=== PATIENT | female | born 2000 | race Caucasian/White ===

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

== ENCOUNTER → 2020-01-15 | Outpatient (CLI) | payer BC ==
[2020-01-15 12:56] LABS: BASO % 0.3 % (0.0-1.0); EOS % 0.4 % (0.0-3.0); HEMOGLOBIN 15.1 g/dl (12.0-15.5); LYMPH # 1.6 10^3/uL (1.5-5.0); LYMPH % 23.5 % (24.0-44.0); MEAN CORPUSCULAR HEMOGLOBIN 30.1 pg (27.0-33.0); MEAN CORPUSCULAR HGB CONC 33.6 g/dl (32.0-36.5); MEAN CORPUSCULAR VOLUME 89.8 fl (80.0-96.0); MONO # 0.4 10^3/uL (0.0-0.8); MONO % 5.9 % (0.0-5.0); NEUTROPHILS # 4.8 10^3/uL (1.5-8.5); NEUTROPHILS % 69.6 % (36.0-66.0); PLATELET COUNT, AUTOMATED 354 10^3/uL (150-450); RED BLOOD COUNT 5.01 10^6/uL (4.00-5.40); WHITE BLOOD COUNT 6.9 10^3/uL (4.0-10.0)
[2020-01-15 13:07] LABS: APPEARANCE, URINE CLEAR (CLEAR); BACTERIA, URINE AUTO NEGATIVE (NEGATIVE); BILIRUBIN, URINE AUTO NEGATIVE (NEGATIVE); BLOOD, URINE BLOOD NEGATIVE (NEGATIVE); COLOR, URINE YELLOW (YELLOW); GLUCOSE, URINE (UA) AUTO NEGATIVE (NEGATIVE); KETONE, URINE AUTO NEGATIVE (NEGATIVE); LEUKOCYTE ESTERASE, URINE AUTO NEGATIVE (NEGATIVE); MUCUS, URINE SMALL (NEGATIVE); NITRITE, URINE AUTO NEGATIVE (NEGATIVE); PROTEIN, URINE AUTO NEGATIVE (NEGATIVE); RBC, URINE AUTO 1 /HPF (0-3); SPECIFIC GRAVITY URINE AUTO 1.014 (1.002-1.035); SQUAMOUS EPITHELIAL CELL UR AU 0 /HPF (0-6); UROBILINOGEN, URINE AUTO 0.2 mg/dL (0.0-2.0); WBC, URINE AUTO 0 /HPF (0-3)
[2020-01-15 13:40] LABS: ALBUMIN 4.4 GM/DL (3.2-5.2); ALT/SGPT 22 U/L (12-78); BILIRUBIN,TOTAL 0.5 MG/DL (0.2-1.0); BLOOD UREA NITROGEN 11 MG/DL (7-18); CARBON DIOXIDE LEVEL 28 MEQ/L (21-32); CHLORIDE LEVEL 102 MEQ/L (98-107); CREATININE FOR GFR 0.82 MG/DL (0.55-1.30); GLOMERULAR FILTRATION RATE > 60.0 (>60); GLUCOSE, FASTING 88 MG/DL (70-100); SODIUM LEVEL 138 MEQ/L (136-145); TOTAL PROTEIN 8.5 GM/DL (6.4-8.2)
== END ==
LOC: M LAB 12:16
PROVIDERS: ATTEND Dermatology
DX: R35.1 Nocturia (principal)

== ENCOUNTER → 2020-03-31 | Outpatient (REF) | payer BC | LOC: M SFHCWAGY 19:39 | PROVIDERS: ATTEND Nurse Practitioner Women's Health | DX: Z12.4 Encounter for screening for malignant neoplasm of cervix (principal) ==

== ENCOUNTER → 2020-04-30 | Outpatient (REF) | LOC: M EMP 14:01 | PROVIDERS: ATTEND Family Medicine | DX: Z02.89 Encounter for other administrative examinations (principal) ==

== ENCOUNTER → 2021-03-26 | Outpatient (REF) | payer BC, OTHER | LOC: M LAB REF 19:12 | PROVIDERS: ATTEND Dermatology | DX: L92.9 Granulomatous disorder of the skin and subcutaneous tissue, unspecified (principal) ==

== ENCOUNTER → 2021-05-13 | Outpatient (REF) | payer OTHER ==
[2021-05-13 14:57] LABS: GC DNA AMPLIFICATION NEGATIVE (NEGATIVE)
== END ==
LOC: M SFHCWAGY 12:33
PROVIDERS: ATTEND Nurse Practitioner Women's Health
DX: Z11.3 Encounter for screening for infections with a predominantly sexual mode of transmission (principal)

== ENCOUNTER → 2021-06-22 | Outpatient (CLI) | payer OTHER ==
[2021-06-22 18:12] LABS: BASO % 0.2 % (0.0-1.0); EOS % 0.4 % (0.0-3.0); HEMOGLOBIN 14.9 g/dl (12.0-15.5); LYMPH # 1.7 10^3/uL (1.5-5.0); LYMPH % 18.7 % (24.0-44.0); MEAN CORPUSCULAR HGB CONC 33.9 g/dl (32.0-36.5); MEAN CORPUSCULAR VOLUME 91.7 fl (80.0-96.0); MONO # 0.7 10^3/uL (0.0-0.8); MONO % 7.5 % (2.0-8.0); NEUTROPHILS # 6.8 10^3/uL (1.5-8.5); PLATELET COUNT, AUTOMATED 304 10^3/uL (150-450); WHITE BLOOD COUNT 9.3 10^3/uL (4.0-10.0)
[2021-06-22 19:26] LABS: HEPATITIS C VIRUS ABY INDEX < 0.0 INDEX (<0.8); HIV 1&2 SCREEN CENTAUR NEGATIVE (NEGATIVE)
[2021-06-22 19:56] LABS: GC DNA AMPLIFICATION NEGATIVE (NEGATIVE)
== END ==
LOC: M PLALAB 14:24
PROVIDERS: ATTEND Specialist
DX: Z34.01 Encounter for supervision of normal first pregnancy, first trimester (principal)

== ENCOUNTER → 2021-09-10 | Outpatient (CLI) | payer MEDICAID, OTHER | LOC: M WHC 12:27 | PROVIDERS: ATTEND Specialist | DX: Z34.02 Encounter for supervision of normal first pregnancy, second trimester (principal) ==

== ENCOUNTER → 2021-11-23 | Outpatient (CLI) | payer OTHER | LOC: M PLALAB 09:47 | PROVIDERS: ATTEND Obstetrics & Gynecology | DX: Z34.03 Encounter for supervision of normal first pregnancy, third trimester (principal) ==

== ENCOUNTER → 2021-12-25 | Outpatient (REF) | payer OTHER, MEDICAID | LOC: M SFHCWAGY 13:14 | PROVIDERS: ATTEND Advanced Practice Midwife | DX: Z34.03 Encounter for supervision of normal first pregnancy, third trimester (principal) ==

== ENCOUNTER 2022-01-21 22:30 | Inpatient (IN) | payer OTHER, MEDICAID ==
[~2022-01-21] VITALS: Ht 165.1 cm; Wt 74.5 kg
[2022-01-21 22:55] VITALS: BP 140/96
[2022-01-21] MEDS ORDERED: PRENTAB9 PO (22:56)
[2022-01-21] MEDS ORDERED: PENICILLIN G POTASSIUM IV 5 MU in D5W MINI-BAG PLUS 100 ML IV STA (23:08)
[2022-01-21] MEDS ORDERED: LACTATED RINGER'S 1000 ML IV STA (23:08)
[2022-01-22] VITALS (42 sets, daily range): BP systolic 111–162; BP diastolic 59–106
[2022-01-22] MEDS ORDERED: FENTANYL 2MCG/ML ROPIVACAINE 0.2% IN 0.9% NACL 100ML IVBAG As Ordered ONE (00:07)
[2022-01-22 00:09] LABS: HEMATOCRIT 41.3 % (36.0-47.0); HEMOGLOBIN 14.3 g/dl (12.0-15.5); MEAN CORPUSCULAR HEMOGLOBIN 30.5 pg (27.0-33.0); MEAN CORPUSCULAR HGB CONC 34.6 g/dl (32.0-36.5); MEAN CORPUSCULAR VOLUME 88.1 fl (80.0-96.0); PLATELET COUNT, AUTOMATED 295 10^3/uL (150-450); RED BLOOD COUNT 4.69 10^6/uL (4.00-5.40); WHITE BLOOD COUNT 14.2 10^3/uL (4.0-10.0)
[2022-01-22] MEDS ORDERED: EPIDURAL/PCA KEYS XX PRN (00:39)
[2022-01-22] MEDS ORDERED: EPIDURAL COMMENT XX SCH (00:39)
[2022-01-22] MEDS ORDERED: NALOXONE INJ 0.4MG/1ML VIAL (J2310 PER 1MG) IV PRN (00:39)
[2022-01-22] MEDS ORDERED: REFRIGERATOR IV KEYS XX PRN (00:39)
[2022-01-22] MEDS ORDERED: diphenhydrAMINE 50MG/ML VIAL (J1200) IV PRN (00:39)
[2022-01-22] MEDS ORDERED: LACTATED RINGER'S 1000 ML IV PRN (00:39)
[2022-01-22] MEDS ORDERED: ePHEDrine SULFATE 25 MG/5 ML(5MG/ML) SYRINGE IV PRN (00:39)
[2022-01-22] MEDS ORDERED: ONDANSETRON 4MG/2ML VIAL IV PRN (00:39)
[2022-01-22] MEDS: LR 1,000 ML IV SCH ×3 (01:00→11:28)
[2022-01-22] MEDS: FENTANYL/ROPIVACAINE/NACL BAG 100 ML EPIDURAL SCH ×2 (01:58→07:21)
[2022-01-22] MEDS ORDERED: OXYTOCIN 30 UNITS IN 0.9% NaCl 500ML IV BAG (J2590) As Ordered ONE (02:37)
[2022-01-22] MEDS: PENICILLIN G POTASSIUM IV 2.5 MU in IV 1 EA IV SCH ×2 (03:39→07:28)
[2022-01-22] MEDS ORDERED: IBUPROFEN 800 MG TAB PO PRN (14:15)
[2022-01-22] MEDS ORDERED: DOCUSATE SODIUM 100MG CAPSULE PO PRN (14:15)
[2022-01-22] MEDS ORDERED: OXYTOCIN DRIP 30 UNITS in IV 1 EA IV SCH (14:15)
[2022-01-22] MEDS ORDERED: RHOGAM 300 MCG (1500 IU) INJ (J2790) IM SCH (14:15)
[2022-01-22] MEDS ORDERED: ACETAMINOPHEN 500 MG TAB PO PRN (14:15)
[2022-01-22] MEDS ORDERED: MEASLES,MUMPS,RUBELLA VACCINE INJ (MMR-II) (90707) SC SCH (14:15)
[2022-01-22] MEDS ORDERED: ACETAMINOPHEN TAB 650MG DOSE (2X325MG) PO PRN (14:15)
[2022-01-22] MEDS ORDERED: DIBUCAINE 1% OINTMENT 30GM TOP PRN (14:15)
[2022-01-22] MEDS ORDERED: ANUSOL HC CREAM 30GM TOP PRN (14:15)
[2022-01-22 15:27] LABS: ALT/SGPT 16 U/L (12-78); BILIRUBIN,TOTAL 0.6 MG/DL (0.2-1.0); CREATININE FOR GFR 0.86 MG/DL (0.55-1.30); GLOMERULAR FILTRATION RATE > 60.0 (>60); LDH LACTATE DEHYDROGENASE 235 U/L (84-246); URIC ACID 4.9 MG/DL (2.6-6.0)
[2022-01-22] MEDS: IBUPROFEN 600MG TAB PO PRN (16:40)
[2022-01-23] VITALS (7 sets, daily range): BP systolic 126–157; BP diastolic 78–103
[2022-01-23] MEDS ORDERED: PRENATAL VITAMINS CHEWABLE TABLET PO SCH (09:00)
[2022-01-23] MEDS: IBUPROFEN 600MG TAB PO PRN ×2 (13:10→21:58)
[2022-01-23 19:11] LABS: HEMOGLOBIN 12.6 g/dl (12.0-15.5); MEAN CORPUSCULAR HEMOGLOBIN 31.1 pg (27.0-33.0); MEAN CORPUSCULAR HGB CONC 33.2 g/dl (32.0-36.5); MEAN CORPUSCULAR VOLUME 93.8 fl (80.0-96.0); PLATELET COUNT, AUTOMATED 224 10^3/uL (150-450); RED BLOOD COUNT 4.05 10^6/uL (4.00-5.40); WHITE BLOOD COUNT 13.5 10^3/uL (4.0-10.0)
[2022-01-23 19:43] LABS: ALBUMIN 2.5 GM/DL (3.2-5.2); ALT/SGPT 17 U/L (12-78); BILIRUBIN,TOTAL 0.1 MG/DL (0.2-1.0); BLOOD UREA NITROGEN 6 MG/DL (7-18); CALCIUM LEVEL 9.2 MG/DL (8.5-10.1); CARBON DIOXIDE LEVEL 29 MEQ/L (21-32); CHLORIDE LEVEL 106 MEQ/L (98-107); CREATININE FOR GFR 0.64 MG/DL (0.55-1.30); GLOMERULAR FILTRATION RATE > 60.0 (>60); GLUCOSE, FASTING 105 MG/DL (70-100); POTASSIUM SERUM 3.7 MEQ/L (3.5-5.1); SODIUM LEVEL 143 MEQ/L (136-145); TOTAL PROTEIN 5.9 GM/DL (6.4-8.2)
[2022-01-23] MEDS ORDERED: NIFEdipine 30 MG XL TAB PO SCH (21:00)
[2022-01-24 02:00] VITALS: BP 136/83
[2022-01-24 06:00] VITALS: BP 127/69
[2022-01-24] MEDS ORDERED: ACET-683 PO (06:35)
[2022-01-24] MEDS ORDERED: IBUP-1022 PO (06:35)
[2022-01-24] MEDS ORDERED: NIFE1TAB52 PO (06:35)
[2022-01-24] MEDS ORDERED: COLA100C5 PO (06:35)
== END 2022-01-24 08:20 | disposition home or self-care (01) | DRG 560 ==
LOC: M LDO 22:30 → M LDI 23:02 → M OBS 01-22 16:25
PROVIDERS: ADMIT Specialist; ATTEND Advanced Practice Midwife
PROC: 10E0XZZ Delivery of Products of Conception, External Approach (ICD-10-PCS; principal; 2022-01-22)
PROC: 0HQ9XZZ Repair Perineum Skin, External Approach (ICD-10-PCS; 2022-01-22)
DX: O99.824 Streptococcus B carrier state complicating childbirth (principal); Z3A.39 39 weeks gestation of pregnancy; O69.81X0 Labor and delivery complicated by cord around neck, without compression, not applicable or unspecified; O70.0 First degree perineal laceration during delivery; Z37.0 Single live birth

== ENCOUNTER → 2022-06-08 | Outpatient (REF) | payer OTHER, MEDICAID ==
[~2022-06-08] MED LIST: ACET-683 PO; COLA100C5 PO; IBUP-1022 PO; NIFE1TAB52 PO; PRENTAB9 PO
== END ==
LOC: M SFHCDERM 14:21
PROVIDERS: ATTEND Physician Assistant
DX: D22.61 Melanocytic nevi of right upper limb, including shoulder (principal); D22.5 Melanocytic nevi of trunk

== ENCOUNTER → 2022-10-05 | Outpatient (REF) | payer OTHER | LOC: M PLALAB 14:08 | PROVIDERS: ATTEND Advanced Practice Midwife | DX: Z12.4 Encounter for screening for malignant neoplasm of cervix (principal) ==

== ENCOUNTER → 2023-10-11 | Outpatient (REF) | payer OTHER | LOC: M PLALAB 13:57 | PROVIDERS: ATTEND Advanced Practice Midwife | DX: Z12.4 Encounter for screening for malignant neoplasm of cervix (principal) ==

== ENCOUNTER → 2024-03-19 | Outpatient (CLI) | payer OTHER ==
[2024-03-19 13:23] LABS: HEMATOCRIT 41.9 % (36.0-47.0); HEMOGLOBIN 14.6 g/dl (12.0-15.5); MEAN CORPUSCULAR HEMOGLOBIN 31.9 pg (27.0-33.0); MEAN CORPUSCULAR HGB CONC 34.8 g/dl (32.0-36.5); MEAN CORPUSCULAR VOLUME 91.5 fl (80.0-96.0); PLATELET COUNT, AUTOMATED 277 10^3/uL (150-450); RED BLOOD COUNT 4.58 10^6/uL (4.00-5.40); WHITE BLOOD COUNT 7.5 10^3/uL (4.0-10.0)
[2024-03-19 14:31] LABS: HIV 1&2 SCREEN NEGATIVE (NEGATIVE)
[2024-03-19 14:39] LABS: HEPATITIS C VIRUS ABY INDEX < 0.02 INDEX (<0.8)
[2024-03-19 14:58] LABS: GC DNA AMPLIFICATION NEGATIVE (NEGATIVE)
== END ==
LOC: M PLALAB 11:17
PROVIDERS: ATTEND Advanced Practice Midwife
DX: Z31.81 Encounter for male factor infertility in female patient (principal)

== ENCOUNTER → 2024-05-18 | Outpatient (CLI) | payer OTHER | LOC: M WHC 08:01 | PROVIDERS: ATTEND Obstetrics & Gynecology | DX: Z34.92 Encounter for supervision of normal pregnancy, unspecified, second trimester (principal) ==

== ENCOUNTER → 2024-07-23 | Outpatient (CLI) | payer OTHER ==
[2024-07-23 14:59] LABS: HEMATOCRIT 38.3 % (36.0-47.0); HEMOGLOBIN 12.7 g/dl (12.0-15.5); MEAN CORPUSCULAR HEMOGLOBIN 31.1 pg (27.0-33.0); MEAN CORPUSCULAR HGB CONC 33.2 g/dl (32.0-36.5); MEAN CORPUSCULAR VOLUME 93.9 fl (80.0-96.0); PLATELET COUNT, AUTOMATED 278 10^3/uL (150-450); RED BLOOD COUNT 4.08 10^6/uL (4.00-5.40); WHITE BLOOD COUNT 8.3 10^3/uL (4.0-10.0)
[2024-07-23 15:27] LABS: GLUCOSE CHALLENGE TEST 1 HOUR 111 MG/DL (LESS THAN 140)
[2024-07-23 16:33] LABS: GC DNA AMPLIFICATION NEGATIVE (NEGATIVE)
[2024-07-23 16:46] LABS: HIV 1&2 SCREEN NEGATIVE (NEGATIVE)
[2024-07-23 16:52] LABS: HEPATITIS C VIRUS ABY INDEX 0.02 INDEX (<0.8)
== END ==
LOC: M PLALAB 10:53
PROVIDERS: ATTEND Obstetrics & Gynecology
DX: Z34.82 Encounter for supervision of other normal pregnancy, second trimester (principal)

== ENCOUNTER → 2024-09-17 | Outpatient (REF) | payer OTHER | LOC: M PLALAB 12:57 | PROVIDERS: ATTEND Nurse Practitioner Family | DX: Z36.89 Encounter for other specified antenatal screening (principal); Z3A.36 36 weeks gestation of pregnancy ==

== ENCOUNTER 2024-10-10 10:53 | Inpatient (IN) | payer OTHER ==
[~2024-10-10] VITALS: Ht 162.6 cm; Wt 80.6 kg
[2024-10-10] VITALS (13 sets, daily range): BP systolic 118–153; BP diastolic 71–94; O2SAT 97
[2024-10-10] MEDS ORDERED: HOME MED LIST COMPLETE! XX SCH (11:15)
[2024-10-10] MEDS ORDERED: LACTATED RINGER'S 1000 ML IV STA (11:34)
[2024-10-10] MEDS ORDERED: OXYTOCIN INJ 10UNITS/ML 1ML VIAL IM PRN (11:35)
[2024-10-10] MEDS ORDERED: LR 1,000 ML IV SCH (11:35)
[2024-10-10] MEDS ORDERED: CARBOPROST TROMETHAMINE 250 MCG/ML AMP IM PRN (11:35)
[2024-10-10] MEDS ORDERED: METHYLERGONOVINE MALEATE 0.2MG/ML 1ML VIAL IM PRN (11:35)
[2024-10-10] MEDS ORDERED: LIDOCAINE 1% MDV 20ML VIAL INFIL PRN (11:35)
[2024-10-10] MEDS ORDERED: OXYTOCIN DRIP 30 UNITS in IV 1 EA IV PRN (11:35)
[2024-10-10] MEDS ORDERED: TRANEXAMIC ACID INJection 1,000 MG in NS 100 ML IV PRN (11:35)
[2024-10-10] MEDS ORDERED: OXYTOCIN 30UNITS IN 0.9% NaCl 500ML IV BAG As Ordered ONE (11:41)
[2024-10-10] MEDS: OXYTOCIN DRIP 30 UNITS in IV 1 EA IV PRN (12:13)
[2024-10-10 12:18] LABS: HEMATOCRIT 39.1 % (36.0-47.0); HEMOGLOBIN 13.3 g/dl (12.0-15.5); MEAN CORPUSCULAR HEMOGLOBIN 30.4 pg (27.0-33.0); MEAN CORPUSCULAR VOLUME 89.5 fl (80.0-96.0); PLATELET COUNT, AUTOMATED 319 10^3/uL (150-450); RED BLOOD COUNT 4.37 10^6/uL (4.00-5.40); WHITE BLOOD COUNT 13.4 10^3/uL (4.0-10.0)
[2024-10-10] MEDS ORDERED: ACETAMINOPHEN 500 MG TAB PO PRN (12:20)
[2024-10-10] MEDS ORDERED: DIBUCAINE 1% OINTMENT 30GM TOP PRN (12:20)
[2024-10-10] MEDS ORDERED: METHYLERGONOVINE MALEATE 0.2 MG TAB PO PRN (12:20)
[2024-10-10] MEDS ORDERED: DOCUSATE SODIUM 100MG CAPSULE PO PRN (12:20)
[2024-10-10] MEDS: IBUPROFEN 800 MG TAB PO PRN (13:10)
[2024-10-10 13:20] LABS: HIV 1&2 SCREEN NEGATIVE (NEGATIVE)
[2024-10-10 13:28] LABS: HEPATITIS C VIRUS ABY INDEX 0.13 INDEX (<0.8)
[2024-10-10] MEDS: ACETAMINOPHEN 325 MG TAB PO PRN (19:54)
[2024-10-11 06:10] VITALS: BP 119/58; O2SAT 96
[2024-10-11] MEDS: PRENATAL VITAMINS CHEWABLE TABLET PO SCH (08:13)
[2024-10-11] MEDS: IBUPROFEN 600MG TAB PO PRN (08:13)
[2024-10-11] MEDS ORDERED: IBUP-1022 PO (09:40)
[2024-10-11] MEDS ORDERED: ACET-683 PO (09:40)
[2024-10-11] MEDS: RHOGAM 300MCG (1500IU) INJ IM SCH (10:59)
[2024-10-12] MEDS ORDERED: MEASLES,MUMPS,RUBELLA VACCINE INJ (MMR-II) SC.IMMUN ONE (09:00)
== END 2024-10-11 15:17 | disposition home or self-care (01) | DRG 560 ==
LOC: M LDO 10:53 → M LDI 11:55 → M OBS 14:35
PROVIDERS: ADMIT Advanced Practice Midwife; ATTEND Advanced Practice Midwife
PROC: 10E0XZZ Delivery of Products of Conception, External Approach (ICD-10-PCS; principal; 2024-10-10)
DX: O69.82X0 Labor and delivery complicated by other cord entanglement, without compression, not applicable or unspecified (principal); Z37.0 Single live birth; Z3A.39 39 weeks gestation of pregnancy

== ENCOUNTER → 2024-12-28 | Outpatient (REF) | payer OTHER | LOC: M SFHCCLAY 09:50 | PROVIDERS: ATTEND Physician Assistant | DX: Z53.9 Procedure and treatment not carried out, unspecified reason (principal) ==